=== PATIENT | male | born 1975 | race Caucasian/White ===

== ENCOUNTER 2017-03-31 09:20 | Inpatient (IN) | payer MEDICAID ==
[~2017-03-31] VITALS: Ht 180.3 cm; Wt 76.7 kg
[2017-03-31 09:27] VITALS: BP 160/90
--- NOTE | 2017-03-31 09:33 | NUR ---
Patient ambulated to bed 12.
--- NOTE | 2017-03-31 09:34 | NUR ---
Note undone in EDM - 03/31/17 at 1018 by [email or web address] 41/M C/O ABDOMINAL PAIN RADIATING TO BACK & N/V TODAYS. SKIN IS PINK/WARM/DRY; AAOX4 WITH EVEN AND STEADY GAIT; LUNGS CLEAR BL; PATIENT STATES PAIN OF 9/10 AT THIS TIME; VSS; PATIENT POSITIONED FOR COMFORT; HOB ELEVATED; BEDRAILS UP X2; BED DOWN. ER MADE AWARE OF PT STATUS.
--- NOTE | 2017-03-31 09:34 | NUR ---
41/M BIB FRIEND C/O ABDOMINAL PAIN RADIATING TO BACK & N/V & LOOS STOOL X TODAY. SKIN IS PINK/WARM/DRY; AAOX4 WITH EVEN AND STEADY GAIT; LUNGS CLEAR BL; PATIENT STATES PAIN OF 9/10 AT THIS TIME; VSS; PATIENT POSITIONED FOR COMFORT; HOB ELEVATED; BEDRAILS UP X2; BED DOWN. ER MD MADE AWARE OF PT STATUS.
--- NOTE | 2017-03-31 09:54 | NUR ---
Patient being evaluated by DR JONAS at bedside.
[2017-03-31] MEDS ORDERED: MORPHINE SULFATE 4 MG/ML SYR IVP ONE (09:55)
[2017-03-31] MEDS ORDERED: NACL 0.9% 1,000 ML IV ONE ×2 (09:55→10:55)
[2017-03-31] MEDS ORDERED: ONDANSETRON 4 MG/2 ML VIAL IVP ONE (09:55)
[2017-03-31 10:07] LABS: HEMATOCRIT 47.9 % (36-52); HEMOGLOBIN 15.6 g/dL (12.0-18.0); MEAN CORPUSCULAR HEMOGLOBIN 28 pg (27-31); MEAN CORPUSCULAR HGB CONC 33 g/dL (33-37); MEAN CORPUSCULAR VOLUME 87 fL (80-94); PLATELET COUNT (AUTO) 299 K/uL (140-450); RED CELL DISTRIBUTION WIDTH 12.8 % (11.6-13.7); WHITE BLOOD COUNT (AUTO) 21.2 K/uL (4.8-10.8)
--- NOTE | 2017-03-31 10:12 | NUR ---
PT TAKEN TO CT VIA GUCLARA,ACCOMPANIED BY MARKET DIRECTOR.
[2017-03-31 10:17] LABS: ANION GAP 17.4 (8-16); CREATININE 1.2 mg/dL (0.7-1.3); POTASSIUM 3.4 mmol/L (3.5-5.1)
[2017-03-31 10:18] LABS: LYMPHOCYTES % (MANUAL) 5 % (20-46); MONOCYTES % (MANUAL) 3 % (5-12)
[2017-03-31 10:25] LABS: ALBUMIN 4.4 g/dL (3.4-5.0); TOTAL BILIRUBIN 1.1 mg/dL (0.0-1.0)
[2017-03-31] MEDS ORDERED: PIPERACILLIN/TAZOBACTAM 3.375 GM in DEXTROSE 5% 50 ML IV ONE (10:55)
[2017-03-31] MEDS ORDERED: VANCOMYCIN 1,000 MG in DEXTROSE 5% 250 ML IV ONE (10:55)
[2017-03-31] MEDS ORDERED: PIPERACILLIN/TAZOBACTAM 3.375 GM VIAL IV ONE (11:08)
[2017-03-31] MEDS ORDERED: VANCOMYCIN 1,000 MG VIAL ONE (11:09)
[2017-03-31] MEDS ORDERED: HYDROmorphone 1 MG/ML AMP IVP ONE (11:35)
[2017-03-31] MEDS ORDERED: METOCLOPRAMIDE 10 MG/2 ML INJ VIAL IVP ONE (11:35)
[2017-03-31] MEDS ORDERED: FAMOTIDINE 20 MG/2 ML VIAL IVP ONE (11:35)
[2017-03-31 11:44] LABS: APPEARANCE,URINE HAZY (CLEAR); BILIRUBIN,URINE NEGATIVE (NEGATIVE); BLOOD, URINE 1+ (NEGATIVE); COLOR,URINE YELLOW (YELLOW); LEUKOCYTE ESTERASE ,URINE NEGATIVE (NEGATIVE); NITRITE, URINE NEGATIVE (NEGATIVE); UGLUCOSE NEGATIVE (NEGATIVE)
[2017-03-31 11:52] LABS: RBC,URINE 0-5 (RARE) /HPF (0-5); WBC,URINE 0-5 (RARE) /HPF (0-5)
[2017-03-31] MEDS ORDERED: NACL 0.9% 500 ML IV ONE (12:00)
--- NOTE | 2017-03-31 12:19 | NUR ---
Note abrahan in EDM - 03/31/17 at 1250 by [facility] Patient will be admitted to care of DR CHAVES. Admited to TELE. Will go to room 119A. Belongings list completed. Report to ANGELIA VILLASEÑOR.
--- NOTE | 2017-03-31 12:19 | NUR ---
GAVE REPORT TO ANGELIA FERRARA.
--- NOTE | 2017-03-31 12:20 | NUR ---
RECEIVED REPORT FROM ANGELIA FRAZIER.
--- NOTE | 2017-03-31 12:52 | NUR ---
Patient will be admitted to care of DR CHAVES. Admited to TELE. Will go to room 119A. Belongings list completed. Report to ANGELIA VILLASEÑOR.
[2017-03-31] MEDS ORDERED: DOCUSATE SODIUM 100 MG GELCAP PO PRN (13:00)
[2017-03-31] MEDS ORDERED: KETOROLAC 30 MG/ML VIAL IVP PRN (13:00)
[2017-03-31 13:05] VITALS: BP 150/70
--- NOTE | 2017-03-31 13:05 | NUR ---
PATIENT ARRIVED VIA GURNEY, WAS ABLE TO AMBULATE FROM [place] TO BED. PATIENT IS AAOX4, HAS IV TO THE RIGHT AC 20G ON SALINE LOCK AT THIS TIME. SITE IS CLEAN, DRY, PATENT AND INTACT. LUNG SOUNDS ARE CLEAR, BOWEL SOUNDS ARE ACTIVE. BILATERAL RADIAL PULSE 2+, CAPILLARY REFILL <3 SECONDS. PEDAL PULSES PRESENT. SKIN IS INTACT. PATIENT HAS 5/10 PAIN TO RLQ RADIATING TO THE BACK. WILL MEDICATE ORDERED. ORIENTED PATIENT TO ROOM, BED IN LOWEST POSITION, SIDERAILS UP X2, CALL LIGHT PLACED WITHIN REACH. PATIENT VERBALIZED UNDERSTANDING. WILL CONTINUE TO MONITOR.
[2017-03-31 13:26] LABS: CHOL/HDL RATIO 2.8 (1-4.5); FREE T4 (FREE THYROXINE) 1.29 ng/dL (0.76-1.46); MAGNESIUM 1.4 mg/dL (1.8-2.4); THYROID STIMULATING HORMONE 0.85 uIU/mL (0.34-3.74)
[2017-03-31 13:28] LABS: PROTHROMBIN TIME 10.4 secs (10.8-13.4)
[2017-03-31] MEDS: NACL 0.9% 1,000 ML IV SCH ×2 (13:43→19:40)
[2017-03-31] MEDS ORDERED: POTASSIUM CHLORIDE 10 MEQ TABER PO SCH (14:00)
--- NOTE | 2017-03-31 14:50 | NUR ---
EXPLAINED TO PATIENT THAT IF HE GETS UP TO USE THE RESTROOM THAT HE NEEDS TO STRAIN HIS URINE PER DOCTORS ORDERS. PATIENT VERBALIZED UNDERSTANDING.
--- NOTE | 2017-03-31 15:00 | NUR ---
PATIENT RESTING IN BED, IS MOANING DUE TO THE PAIN. WILL CONTINUE TO MONITOR.
[2017-03-31] MEDS: HYDROcodone/APAP 7.5/325 MG 1 TAB PO PRN (15:32)
[2017-03-31 16:00] VITALS: BP 137/76
[2017-03-31] MEDS ORDERED: MAG SULF 2000 MG/WATER PREMIX 50 ML IV SCH (16:30)
[2017-03-31] MEDS: SODIUM PHOS / POTASSIUM PHOS 1 PKT PDR PO SCH (17:16)
[2017-03-31] MEDS: HYDROmorphone 1 MG/ML AMP IVP PRN ×3 (17:39→23:43)
--- NOTE | 2017-03-31 18:30 | NUR ---
DR VALENZUELA CAME TO SPEAK TO PATIENT. STATED THAT PATIENT CAN HAVE SOMETHING TO EAT, BUT BE PUT ON NPO AFTER MIDNIGHT. WILL ENDORSE TO SORTING GRAPPLE OPERATOR.
[2017-03-31] MEDS: PIPER/TAZO 3.375GM/D5W PREMIX 50 ML IV SCH ×2 (19:07→23:08)
--- NOTE | 2017-03-31 19:20 | NUR ---
ENDORSED PATIENT TO DRUM BUILDER RN FOR CONTINUITY OF CARE. PATIENT IN STABLE CONDITION.
--- NOTE | 2017-03-31 19:30 | NUR ---
RECEIVED FROM AM RN IN BED AWAKE AND ALERT. MALE FRIEND VISITING. DENIES PAIN AT THIS TIME. TELEMETRY MONITORING. NO SOB. NO NOTED RESTLESSNESS. CALL LIGHT WITH IN REACH AND RE-ORIENTED TO ROOM AND CARE GIVERS. . SKIN INTACT. DX. OF SEPSIS SECONDARY TO PYELONEPHRITIS. IVF SITE TO RAC#20 INTACT AND NO INFILTRATION NOTED. AFEBRILE.
[2017-03-31 19:51] VITALS: BP 140/79
--- NOTE | 2017-03-31 21:30 | NUR ---
PT. SLEEPING AT THIS TIME. CALL LIGHT WITH IN REACH AND ON TELEMETRY MONITORING. NO RESTLESSNESS NOTED.
[2017-03-31 23:36] VITALS: BP 145/87
--- NOTE | 2017-03-31 23:40 | NUR ---
PT. AWAKE AT THIS TIME. WENT RESTROOM TO URINATE AND TRIED TO GO BM. BACK IN BED AND REQUESTED FOR PAIN RELIEVER. PAIN IS 8/10. CRYING AT THIS TIME. MEDICATED REQUESTED. CALL LIGHT WITH IN REACH AT ALL TIMES. A/O X 4. ROM X 4. REMINDED NPO MIDNIGHT.
--- NOTE | 2017-04-01 | NUR ---
NO NOTED ADVERSE REACTIONS TO IV ABT ZOSYN INFUSED . ABLE TO VERBALIZE WELL. ORIENTED X 4.
[2017-04-01] MEDS: NACL 0.9% 1,000 ML IV SCH ×4 (02:28→22:20)
[2017-04-01 02:37] VITALS: BP 146/86
--- NOTE | 2017-04-01 02:40 | NUR ---
WOKE UP FROM SLEEP AND CRYING. STATED HE STILL FEEL PAIN IN HIS LOWER BACK . MEDICATED WITH TORADOL IVP. WILL MONITOR AGAIN IF PT. ABLE TO SLEEP BACK.
--- NOTE | 2017-04-01 03:16 | NUR ---
PT. SLEPT BACK. CALL LIGHT WITH IN REACH. NO RESTLESSNESS NOTED AT THIS TIME.
[2017-04-01 04:24] VITALS: BP_SYST 123; BP_SYST 138; BP_DIAS 65; BP_DIAS 74
--- NOTE | 2017-04-01 04:39 | NUR ---
AM HYGIENE RENDERED BY CNAS. NO COMPLAINTS DONE AT THIS TIME.
[2017-04-01] MEDS: PIPER/TAZO 3.375GM/D5W PREMIX 50 ML IV SCH ×4 (05:39→23:34)
[2017-04-01] MEDS: HYDROmorphone 1 MG/ML AMP IVP PRN ×3 (06:11→20:49)
--- NOTE | 2017-04-01 06:42 | NUR ---
PT. WOKE UP AT THIS TIME AND MOANING , CRYING AND RESTLESS. REQUESTED FOR PAIN RELIEVER. MEDICATED ORDERED. PT. ABLE TO VERBALIZE NEEDS WELL. NO SOB. IVF SITE INTACT AND NO INFILTRATION. ON TELEMETRY MONITORING. PT. DX. PYELONEPHRITIS/SEPSIS. PT.'S URINE WITH TINY FLECKS OF CRYSTALS NOTED FROM STRAINED URINE.
--- NOTE | 2017-04-01 07:15 | NUR ---
RECEIVED REPORT FROM PEAR PICKER RN. PATIENT IS AAOX4, DENIES PAIN AT THIS TIME. NO SIGNS AND SYMPTOMS OF DISTRESS NOTED AT THIS TIME. HAS IV NS INFUSING TO RIGHT AC 20G AT 150 ML/HR, SITE IS CLEAN, DRY AND PATENT. BED IS IN LOWEST POSITION, SIDE RAILS UP X2, CALL LIGHT PLACED WITHIN REACH. WILL CONTINUE TO MONITOR.
[2017-04-01 07:22] LABS: HEMATOCRIT 41.4 % (36-52); MEAN CORPUSCULAR HEMOGLOBIN 30 pg (27-31); MEAN CORPUSCULAR HGB CONC 34 g/dL (33-37); MEAN CORPUSCULAR VOLUME 87 fL (80-94); PLATELET COUNT (AUTO) 244 K/uL (140-450); RED BLOOD CELL COUNT(AUTO) 4.74 MIL/uL (4.20-6.10); RED CELL DISTRIBUTION WIDTH 12.9 % (11.6-13.7); WHITE BLOOD COUNT (AUTO) 18.8 K/uL (4.8-10.8)
[2017-04-01 07:38] LABS: ANION GAP 11.4 (8-16); CARBON DIOXIDE 28.2 mmol/L (21-32); CREATININE 1.2 mg/dL (0.7-1.3); POTASSIUM 3.6 mmol/L (3.5-5.1)
[2017-04-01 07:40] LABS: PHOSPHORUS 3.4 mg/dL (2.5-4.9)
[2017-04-01 08:00] VITALS: BP 111/56
[2017-04-01] MEDS: SODIUM PHOS / POTASSIUM PHOS 1 PKT PDR PO SCH ×3 (08:00→17:50)
[2017-04-01 08:01] LABS: LYMPHOCYTES % (MANUAL) 10 % (20-46)
[2017-04-01 08:02] LABS: MONOCYTES % (MANUAL) 5 % (5-12)
[2017-04-01] MEDS: TAMSULOSIN 0.4 MG CAP PO SCH ×2 (08:30→16:33)
[2017-04-01 08:54] LABS: T4 (THYROXINE) 8.2 ug/dL (4.5-12.0)
[2017-04-01] MEDS: LACTOBACILLUS RHAMNOSUS GG 1 EACH CAP PO SCH (09:00)
--- NOTE | 2017-04-01 09:18 | NUR ---
PATIENT HAS BEEN SCREENED AND CATEGORIZED HIGH NUTRITION RISK. PATIENT WILL BE SEEN WITHIN 1-2 DAYS OF ADMISSION. 04/01/17-04/02/[address]
[2017-04-01] MEDS: ONDANSETRON 4 MG/2 ML VIAL IM/IVP PRN (11:35)
[2017-04-01] MEDS ORDERED: ACET-9529 PO (12:13)
[2017-04-01] MEDS ORDERED: DOCU-299 PO (12:13)
[2017-04-01] MEDS ORDERED: LEVO750T2 PO (12:13)
[2017-04-01] MEDS ORDERED: LACT10CA PO (12:13)
[2017-04-01] MEDS ORDERED: SIME80CT70 PO (12:15)
[2017-04-01] MEDS ORDERED: TAMS0.4C96 PO (12:21)
[2017-04-01] MEDS ORDERED: SIMETHICONE 80 MG TAB.CHEW PO SCH (12:30)
[2017-04-01] MEDS ORDERED: hydrALAZINE 20 MG/ML VIAL IVP PRN (12:45)
--- NOTE | 2017-04-01 12:45 | NUR ---
04/01/17 RD INITIAL ASSESSMENT COMPLETED PLEASE REFER TO NUTRITION ASSESSMENT UNDER CARE ACTIVITY FOR ESTIMATED NUTRITIONAL NEEDS. 1. CONTINUE REGULAR DIET 2. RD TO FOLLOW UP WITHIN 2-3 DAYS; HIGH RISK [address]
[2017-04-01 16:00] VITALS: BP 137/78
--- NOTE | 2017-04-01 16:00 | NUR ---
PATIENT AMBULATING IN THE [place], SAYS HE HAS PAIN IN HIS LOWER BACK.
[2017-04-01] MEDS ORDERED: TAMSULOSIN 0.4 MG CAP PO ONE (16:35)
[2017-04-01] MEDS: METOCLOPRAMIDE 10 MG TAB PO PRN (16:36)
--- NOTE | 2017-04-01 19:23 | NUR ---
ENDORSED PATIENT TO CLUTCH REBUILDER RN FOR CONTINUITY CARE. PATIENT IN STABLE CONDITION.
--- NOTE | 2017-04-01 19:25 | NUR ---
RECEIVED PT IN STABLE CONDITION FROM AM NURSE. AWAKE,ALERT AND ORIENTED X4/ ARMENIAN SPEAKING. MED SURG PT. AMBULATORY . DENIES ANY PAIN AT THIS TIME. WITH IVF INFUSING WELL ON THE RT AC #20/ CLEAR AND PATENT. PLAN OF CARE DISCUSSED AND VERBALIZED UNDERSTANDING. HAS VISITORS AT BEDSIDE. CALL LIGHT AND URINALS WITHIN EASY REACH. WILL CONTINUE TO MONITOR.
[2017-04-01 20:42] VITALS: BP 136/75
[2017-04-01] MEDS: ACETAMINOPHEN 325 MG TAB PO PRN (20:50)
--- NOTE | 2017-04-01 20:50 | NUR ---
PT TEMP 100.8. REFUSED ANY COOLING MEASURES LIKE ICE PACK. TYLENOL 650 MG PO GIVEN ORDERED. ENCOURAGED TO TAKE MORE FLUIDS. WILL CONTINUE TO MONITOR.
--- NOTE | 2017-04-01 22:10 | NUR ---
PT C/O TOO MUCH GAS . DR. SHANNON, RESIDENT MADE AWARE . WILL MAKE ORDER.
[2017-04-01] MEDS: ALUMINUM HYD/MAG/SIMETHICONE 30 ML UDC PO PRN (22:34)
--- NOTE | 2017-04-01 23:30 | NUR ---
PT IS AFEBRILE AND MORE COMFORTABLE NO MORE C/O ABDOMINAL DISCOMFORT . WILL CONTINUE TO MONITOR.
[2017-04-01 23:39] VITALS: BP 133/64
--- NOTE | 2017-04-02 | NUR ---
PT INSTRUCTED ABOUT NPO STATUS AFTER MN FOR ANY POSSIBLE PROCEDURE IN AM . VERBALIZED UNDERSTANDING.
[2017-04-02] MEDS: NACL 0.9% 1,000 ML IV SCH ×5 (01:27→21:07)
--- NOTE | 2017-04-02 02:00 | NUR ---
MADE ROUNDS. PT ASLEEP. NO DISTRESS NOTED. WILL CONTINUE TO MONITOR.
[2017-04-02] MEDS: ACETAMINOPHEN 325 MG TAB PO PRN ×3 (03:44→21:19)
--- NOTE | 2017-04-02 04:30 | NUR ---
PT AWAKE, AMBULATED TO THE HALLWAY. HE SAID HE HAD DIARRHEA X1. WILL OBSERVE FURTHER DIARRHEA.
[2017-04-02] MEDS: PIPER/TAZO 3.375GM/D5W PREMIX 50 ML IV SCH ×3 (05:53→17:00)
--- NOTE | 2017-04-02 06:00 | NUR ---
DR. SHANNON CAME AND MADE AWARE ABOUT X1 EPISODE OF DIARRHEA. WILL CONTINUE TO MONITOR.
[2017-04-02 06:22] LABS: HEMOGLOBIN 13.1 g/dL (12.0-18.0); MEAN CORPUSCULAR HEMOGLOBIN 30 pg (27-31); MEAN CORPUSCULAR HGB CONC 33 g/dL (33-37); MEAN CORPUSCULAR VOLUME 89 fL (80-94); PLATELET COUNT (AUTO) 217 K/uL (140-450); RED CELL DISTRIBUTION WIDTH 13.3 % (11.6-13.7); WHITE BLOOD COUNT (AUTO) 17.8 K/uL (4.8-10.8)
--- NOTE | 2017-04-02 06:26 | NUR ---
PT VOIDING WELL DURING THE NIGHT. NO STONES NOTED .
[2017-04-02 06:40] LABS: ANION GAP 7.9 (8-16); CARBON DIOXIDE 30.7 mmol/L (21-32); CREATININE 0.9 mg/dL (0.7-1.3); POTASSIUM 3.6 mmol/L (3.5-5.1)
--- NOTE | 2017-04-02 07:23 | NUR ---
ENDORSED PT IN STABLE CONDITION TO AM NURSE.
--- NOTE | 2017-04-02 07:24 | NUR ---
RECEIVED REPORT FROM THE MONOGRAM OPERATOR NURSE AT BEDSIDE FOR CONTINUITY OF CARE. PT IS AWAKE, BIT DROWSY. PT IS [place] SPEAKING W/ VERY LITTLE MONGOLIAN. INTRODUCED MYSELF AND UPDATED THE BOARD. PT IS C/O OF VERY LITTLE RLQ ABD PAIN. 07/12. TOLERABLE. V/S WITHIN NORMAL RANGE. NO FEVER. PT HAD A SMALL BM EARLY THIS MORNING. IV ON R AC 20G NS AT 150ML. WE ARE STRAINING URINE FOR STONES. NONE NOTED. STRAINED 270ML THIS MORNING. BREAKFAST IS HERE. PT REFUSED TO EAT. WILL CONTINUE TO MONITOR PT.
[2017-04-02 07:29] LABS: EOSINOPHILS % (MANUAL) 1 % (0-4); LYMPHOCYTES % (MANUAL) 13 % (20-46); MONOCYTES % (MANUAL) 4 % (5-12)
[2017-04-02 08:00] VITALS: BP 130/82
[2017-04-02] MEDS: TAMSULOSIN 0.4 MG CAP PO SCH (08:35)
[2017-04-02] MEDS: LACTOBACILLUS RHAMNOSUS GG 1 EACH CAP PO SCH (08:35)
[2017-04-02] MEDS: SODIUM PHOS / POTASSIUM PHOS 1 PKT PDR PO SCH ×3 (08:35→17:00)
[2017-04-02] MEDS: ALUMINUM HYD/MAG/SIMETHICONE 30 ML UDC PO PRN ×2 (08:36→21:14)
--- NOTE | 2017-04-02 08:40 | NUR ---
ADMINISTERED MORNING MEDS. PT TOLERATED WELL. PT REQUESTED TYLENOL FOR BARNES 08/09. ADMINISTERED. PT TOLERATED WELL. WILL CONTINUE TO MONITOR PT.
--- NOTE | 2017-04-02 10:55 | NUR ---
PT RESTING COMFORTABLY. NO SIGNS OF DISTRESS. WILL CONTINUE TO MONITOR PT.
--- NOTE | 2017-04-02 12:08 | NUR ---
DR. VALENZUELA, UROLOGIST HERE AND SAW PT AND UPSET THAT HE PUT PT ON NPO AFTER MIDNIGHT AND DR. LEE HAD CHANGED IT TO REG DIET AND THAT HE WAS NOT NOTIFIED OF THE FEVER HE HAD LAST NIGHT. PT TO BE NPO AFTER MIDNIGHT TONIGHT. STENT PROCEDURE TOMORROW AM.
[2017-04-02] MEDS: HYDROcodone/APAP 7.5/325 MG 1 TAB PO PRN (12:54)
--- NOTE | 2017-04-02 15:01 | NUR ---
PT RESTING COMFORTABLY. NO SIGNS OF DISTRESS. WILL CONTINUE TO MONITOR PT.
[2017-04-02 16:00] VITALS: BP 135/83
--- NOTE | 2017-04-02 17:09 | NUR ---
ADMINISTERED AFTERNOON MED, ABX, AND A NEW NS. PT TOLERATED WELL. PAIN MANAGEABLE. REFUSES PAIN MED. WILL CONTINUE TO MONITOR PT.
--- NOTE | 2017-04-02 19:13 | NUR ---
ENDORSED PT TO THE COMPUTER SYSTEMS SOFTWARE ENGINEER NURSE AT BEDSIDE FOR CONTINUITY OF CARE. PT IS VISITING WITH A FRIEND. IN STABLE CONDITION.
--- NOTE | 2017-04-02 19:14 | NUR ---
[id number] BEDSIDE REPORT FROM DAY SHIFT NURSE, YONATAN GALAN, PT STABLE, NO DISTRESS NOTED, AAO X4, AMBULATES, SKIN INTACT, IV TO THE R AC 20G RUNNING NS @ 150ML/HR, INFUSING WELL, CALL LIGHT WITHIN REACH, FRIEND BY BEDSIDE, WILL CONTINUE TO MONITOR. Addendum: 04/02/17 at 1956 by Chelsea Arthur RN ALL SAFETY PRECAUTION MET, INITIAL ASSESSMENT DONE.
[2017-04-02] MEDS ORDERED: INFLUENZA VIRUS VACCINE QUAD 0.5 ML SYR IMVAC SCH (20:05)
--- NOTE | 2017-04-02 21:25 | NUR ---
PT C/O OF GAS AND HEADACHE, MEDICATION GIVEN, PT TOLERATED WELL, NO DISTRESS NOTED, CALL LIGHT WITHIN REACH, WILL CONTINUE TO MONITOR.
--- NOTE | 2017-04-02 23:10 | NUR ---
CHECKED ON PT, PT SLEEPING, NO DISTRESS NOTED CALL LIGHT WITHIN REACH WILL CONTINUE TO MONITOR.
[2017-04-03] VITALS: BP 124/66
[2017-04-03] MEDS: PIPER/TAZO 3.375GM/D5W PREMIX 50 ML IV SCH ×4 (00:08→17:20)
[2017-04-03] MEDS: NACL 0.9% 1,000 ML IV SCH ×3 (00:08→20:49)
--- NOTE | 2017-04-03 00:08 | NUR ---
DUE MEDICATION GIVEN, PT SLEEPING, EASY TO AROUSE, NO DISTRESS NOTED, CALL LIGHT WITHIN REACH, WILL CONTINUE TO MONITOR.
--- NOTE | 2017-04-03 02:18 | NUR ---
CHECKED ON PT, PT SLEEPING, EASY TO AROUSE, NO DISTRESS NOTED, REPORTING HAVING NO PAIN, WILL CONTINUE TO MONITOR.
--- NOTE | 2017-04-03 04:26 | NUR ---
CHECKED ON PT, PT SLEEPING, EASY TO AROUSE, NO DISTRESS NOTED, CALL LIGHT WITHIN REACH, WILL CONTINUE TO MONITOR.
--- NOTE | 2017-04-03 05:40 | NUR ---
DUE MEDICATION GIVEN, PT SLEEPING, EASY TO AROUSE, NO DISTRESS NOTED, CALL LIGHT WITHIN REACH, WILL CONTINUE TO MONITOR.
--- NOTE | 2017-04-03 07:14 | NUR ---
GAVE BEDSIDE REPORT TO DAY SHIFT NURSE DAYANARA BYRD STABLE, NO DISTRESS NOTED, PICKED UP BY BED FOR SURGERY.
--- NOTE | 2017-04-03 07:15 | NUR ---
RECEIVED PT IN BED, AWAKE, ALERT ORIENTEDX4. NO SOB NOTED. PT AMBULATORY. OR STAFF CAME TO SUPERANNUATION FUNDS MANAGER PT FOR CYSTOSCOPY, RIGHT STENT PLACEMENT, POSSIBLE RIGHT URETROSCOPY. OR CHECKLIST DONE BY TELETYPE TECHNICIAN. PROVIDED WITH TICKET TO RIDE. CONSENT SIGNED. PT TRANSFERRED TO OR ON STABLE CONDITION.
[2017-04-03] MEDS ORDERED: SEVOFLURANE 250 ML BTL INH ONE (07:20)
[2017-04-03] MEDS ORDERED: PROPOFOL 200 MG/20 ML VIAL IV ONE (07:20)
[2017-04-03] MEDS ORDERED: fentaNYL 0.05 MG/ML VIAL ONE (07:35)
[2017-04-03] MEDS ORDERED: MIDAZOLAM 2 MG/2 ML VIAL ONE (07:35)
[2017-04-03] MEDS ORDERED: ONDANSETRON 4 MG/2 ML VIAL IVP PRN (07:45)
[2017-04-03] MEDS ORDERED: HYDROmorphone 1 MG/ML AMP IVP PRN (07:45)
[2017-04-03] MEDS: SODIUM PHOS / POTASSIUM PHOS 1 PKT PDR PO SCH ×3 (08:00→16:00)
[2017-04-03] MEDS: TAMSULOSIN 0.4 MG CAP PO SCH (08:30)
[2017-04-03] MEDS: LACTOBACILLUS RHAMNOSUS GG 1 EACH CAP PO SCH (09:00)
[2017-04-03] MEDS ORDERED: HYDROmorphone PFS 2 MG/ML SYR ONE (10:09)
[2017-04-03] MEDS ORDERED: ONDANSETRON 4 MG/2 ML VIAL ONE (10:09)
[2017-04-03 10:20] LABS: BASOPHILS # (AUTO) 0.3 K/uL (0.00-0.22); BASOPHILS % (AUTO) 2.2 % (0.0-2.0); EOSINOPHILS # (AUTO) 0.3 K/uL (0-0.4); EOSINOPHILS % (AUTO) 1.9 % (0.0-4.0); HEMATOCRIT 41.5 % (36-52); HEMOGLOBIN 13.8 g/dL (12.0-18.0); LYMPHOCYTES # (AUTO) 2.9 K/uL (2.0-11.5); LYMPHOCYTES % (AUTO) 21.5 % (20.5-51.1); MEAN CORPUSCULAR HEMOGLOBIN 29 pg (27-31); MEAN CORPUSCULAR HGB CONC 33 g/dL (33-37); MEAN CORPUSCULAR VOLUME 88 fL (80-94); MONOCYTES # (AUTO) 1.3 K/uL (0.8-1.0); MONOCYTES % (AUTO) 9.9 % (1.7-9.3); NEUTROPHILS # (AUTO) 8.8 K/uL (1.8-7.7); NEUTROPHILS % (AUTO) 64.5 % (42.2-75.2); PLATELET COUNT (AUTO) 243 K/uL (140-450); RED BLOOD CELL COUNT(AUTO) 4.74 MIL/uL (4.20-6.10); RED CELL DISTRIBUTION WIDTH 12.7 % (11.6-13.7); WHITE BLOOD COUNT (AUTO) 13.6 K/uL (4.8-10.8)
[2017-04-03 10:30] VITALS: BP 142/86
--- NOTE | 2017-04-03 10:30 | NUR ---
PT CAME BACK FROM OR. ASSISTED BY OR NURSE. PT HAD CYSTOSCOPY AND RIGHT URETROSCOPY. PT AWAKE. ALERT ORIENTEDX4. PT COMPLAINS OF FEELING COLD. OFFERED WARM BLANKETS. HOOKED TO IVF. NO SOB NOTED. DENIES ANY PAIN OR DISCOMFORT AT THIS TIME. PT URINATED ON URINAL. BLOOD TINGE URINE NOTED, LIGHT MORSE IN COLOR. PT KEPT COMFORTABLE. VITAL SIGNS TAKEN AND RECORDED.
[2017-04-03 10:35] LABS: ANION GAP 12.1 (8-16); CARBON DIOXIDE 28.7 mmol/L (21-32); POTASSIUM 3.8 mmol/L (3.5-5.1)
[2017-04-03 10:39] LABS: MAGNESIUM 1.5 mg/dL (1.8-2.4); PHOSPHORUS 3.5 mg/dL (2.5-4.9)
[2017-04-03 10:40] LABS: PROTHROMBIN TIME 10.4 secs (10.8-13.4)
[2017-04-03] MEDS: HYDROmorphone 1 MG/ML AMP IVP PRN ×3 (11:05→20:42)
--- NOTE | 2017-04-03 11:15 | NUR ---
DR. JANG MADE AWARE PER OR NURSE REPORT THAT ACCORDING TO DR. VALENZUELA TO KEEP PT NPO UNTIL SEEN BY HIM.
[2017-04-03] MEDS ORDERED: HYDROmorphone 1 MG/ML AMP IVP SCH (11:51)
--- NOTE | 2017-04-03 11:51 | NUR ---
DISCARDED DILAUDD 0.5MG IVP TAKEN FROM PYXIS PER PACU ORDER. WITNESSED BY ANOTHER NURSE. DR. JANG MADE AWARE THAT PT STILL COMPLAINS OF PAIN AFETR DOSE OF DILAUDID OERED 0.5MG FOR Q3 HRS WAS GIVEN. AND DR. JANG MADE AWARE OF MAGNESIUM LEVEL 1.5, AND MADE AWARE THAT PT REQUESTED TO SEE PT. MD TO SEE PT.
[2017-04-03] MEDS ORDERED: MAG SULF 2000 MG/WATER PREMIX 50 ML IV SCH (12:30)
[2017-04-03] MEDS: ALUMINUM HYD/MAG/SIMETHICONE 30 ML UDC PO PRN (12:47)
--- NOTE | 2017-04-03 12:53 | NUR ---
DR. VALENZUELA CAME TO SEE PT. PER MD HE WANTS TO GIVE TORADOL 30MG IVP Q6 HRS X4 DOSES AND CHANGE THE DIET TO REGULAR DIET, AND STRAIN ALL URINE. DR. JANG MADE AWARE WITH ORDERS MADE AND CARRIED OUT.
[2017-04-03] MEDS ORDERED: KETOROLAC 30 MG/ML VIAL IVP PRN (12:55)
[2017-04-03] MEDS: ONDANSETRON 4 MG/2 ML VIAL IM/IVP PRN (13:59)
[2017-04-03 15:49] VITALS: BP 151/84
[2017-04-03] MEDS: KETOROLAC 30 MG/ML VIAL IVP SCH ×2 (17:21→23:36)
--- NOTE | 2017-04-03 17:28 | NUR ---
DRAINED PT'S URINAL. URINE CLEAR, LESS MORES COLORED, MORE OF YELLOW IN COLOR NOW. SMALL BLOOD CLOTS NOTED. URINE CONTINUED TO BE STRAINED FOR STONES.
--- NOTE | 2017-04-03 18:39 | NUR ---
PT KEPT, CLEAN, DRY AND COMFORTABLE. NEEDS ATTENDED, WILL ENDORSE TO NEXT SHIFT ON STABLE CONDITION, FOR CONTINUITY OF CARE. FAMILY AT BEDSIDE AT THIS TIME.
--- NOTE | 2017-04-03 18:40 | NUR ---
RECEIVED PT FROM DAY SHIFT, PT AAOX4 ON . NO S/S OF DISTRESS NOTED. IV TO R AC 20 G PATENT AND INTACT, INFUSING WELL. RESPIRATIONS EVEN AND UNLABORED. BOWEL SOUNDS PRESENT. SKIN INTACT. PT IS WARM AND DRY. INITIAL ASSESSMENT COMPLETED. PLAN OF CARE DISCUSSED WITH PT AT THE BEDSIDE, PT VERBALIZED UNDERSTANDING. ALL SAFETY PRECAUTIONS MET, CALL LIGHT WITHIN REACH, WILL CONTINUE TO MONITOR
--- NOTE | 2017-04-03 21:00 | NUR ---
2120 ML OF URINE STRAINED. NO STONES NOTED. URINE HAS LIGHT PINK TINGE WITH SCANT BLOOD CLOTS.
[2017-04-03] MEDS: METOCLOPRAMIDE 10 MG TAB PO PRN (23:35)
[2017-04-04] VITALS: BP 122/71
--- NOTE | 2017-04-04 00:30 | NUR ---
950 ML OF URINE STRAINED. NO STONES NOTED. URINE IS LIGHT YELLOW AND CLEAR NO ODOR NOTED. WILL CONTINUE TO MONITOR
[2017-04-04] MEDS: PIPER/TAZO 3.375GM/D5W PREMIX 50 ML IV SCH ×2 (00:31→05:31)
[2017-04-04] MEDS: NACL 0.9% 1,000 ML IV SCH ×2 (03:23→10:20)
--- NOTE | 2017-04-04 03:30 | NUR ---
PT RESTING COMFORTABLY IN BED. NO S/S OF DISTRESS NOTED. CALL LIGHT WITHIN REACH, WILL CONTINUE TO MONITOR
[2017-04-04] MEDS: KETOROLAC 30 MG/ML VIAL IVP SCH ×2 (05:31→13:10)
[2017-04-04] MEDS ORDERED: MAG SULF 2000 MG/WATER PREMIX 50 ML IV ONE (05:50)
[2017-04-04 05:56] LABS: BASOPHILS # (AUTO) 0.4 K/uL (0.00-0.22); BASOPHILS % (AUTO) 3.1 % (0.0-2.0); EOSINOPHILS # (AUTO) 0.2 K/uL (0-0.4); EOSINOPHILS % (AUTO) 1.9 % (0.0-4.0); HEMATOCRIT 40.1 % (36-52); HEMOGLOBIN 13.5 g/dL (12.0-18.0); LYMPHOCYTES % (AUTO) 17.6 % (20.5-51.1); MEAN CORPUSCULAR HEMOGLOBIN 30 pg (27-31); MEAN CORPUSCULAR HGB CONC 34 g/dL (33-37); MEAN CORPUSCULAR VOLUME 88 fL (80-94); MONOCYTES # (AUTO) 1.6 K/uL (0.8-1.0); MONOCYTES % (AUTO) 14.3 % (1.7-9.3); NEUTROPHILS # (AUTO) 7.1 K/uL (1.8-7.7); NEUTROPHILS % (AUTO) 63.1 % (42.2-75.2); PLATELET COUNT (AUTO) 244 K/uL (140-450); RED BLOOD CELL COUNT(AUTO) 4.59 MIL/uL (4.20-6.10); RED CELL DISTRIBUTION WIDTH 12.5 % (11.6-13.7); WHITE BLOOD COUNT (AUTO) 11.3 K/uL (4.8-10.8)
[2017-04-04] MEDS ORDERED: BENZOCAINE 20% 57 GM CAN MC PRN ×2 (06:10→07:55)
[2017-04-04] MEDS: ALUMINUM HYD/MAG/SIMETHICONE 30 ML UDC PO PRN (06:24)
[2017-04-04 06:30] LABS: CARBON DIOXIDE 28.8 mmol/L (21-32); CREATININE 1.5 mg/dL (0.7-1.3); POTASSIUM 3.8 mmol/L (3.5-5.1)
[2017-04-04 06:31] LABS: PHOSPHORUS 3.5 mg/dL (2.5-4.9)
--- NOTE | 2017-04-04 07:20 | NUR ---
GAVE REPORT TO HECTOR GALAN AT THE BEDSIDE FOR CONTINUITY OF CARE, PT IN STABLE CONDITION. NO S/S OF DISTRESS NOTED.
--- NOTE | 2017-04-04 07:25 | NUR ---
RECEIVED REPORT FROM DISPLAY DEPARTMENT MANAGER NURSE, PT IS RESTING IN BED IN SEMI FOWLERS POSITION, PT IS A/OX4, AMBULATORY, IV IS ON THE RT AC, PATENT, INTACT, FLUSHING WELL, NO S/S OF RESPIRATORY DISTRESS OR DISCOMFORT NOTED, DISCUSSED PLAN OF CARE WITH PT, PT VERBALIZED UNDERSTANDING, SAFETY/FALL PRECAUTIONS ARE IN PLACE, CALL LIGHT WITHIN REACH, WILL CONTINUE TO MONITOR.
[2017-04-04 08:00] VITALS: BP 129/90
[2017-04-04] MEDS: TAMSULOSIN 0.4 MG CAP PO SCH (08:37)
[2017-04-04] MEDS: LACTOBACILLUS RHAMNOSUS GG 1 EACH CAP PO SCH (08:37)
[2017-04-04] MEDS: SODIUM PHOS / POTASSIUM PHOS 1 PKT PDR PO SCH (08:37)
--- NOTE | 2017-04-04 08:37 | NUR ---
DUE MEDICATIONS GIVEN, PT TOLERATED WELL, CALL LIGHT WITHIN REACH.
[2017-04-04] MEDS ORDERED: LEVO750T2 PO (10:08)
[2017-04-04] MEDS: HYDROmorphone 1 MG/ML AMP IVP PRN (10:46)
--- NOTE | 2017-04-04 11:30 | NUR ---
PT RESTING IN BED WATCHING TV, CALL LIGHT WITHIN REACH.
--- NOTE | 2017-04-04 12:46 | NUR ---
DISCHARGE INSTRUCTIONS GIVEN, ID WRIST BAND REMOVED, IV REMOVED, CATHETER TIP INTACT.
--- NOTE | 2017-04-04 14:30 | NUR ---
IV REMOVED CATHETER TIP INTACT, PT STABLE UPON DISCHARGE ACCOMPANIED BY FAMILY MEMBER.
== END 2017-04-04 14:30 | disposition home or self-care (01) | DRG 465 ==
LOC: MED 09:20 → MTU 12:05
PROVIDERS: ADMIT Family Medicine; ATTEND Family Medicine
PROC: BT1D1ZZ Fluoroscopy of Right Kidney, Ureter and Bladder using Low Osmolar Contrast (ICD-10-PCS; principal; 2017-04-03 07:30)
PROC: 3E0234Z Introduction of Serum, Toxoid and Vaccine into Muscle, Percutaneous Approach (ICD-10-PCS; 2017-04-04)
DX: N13.2 Hydronephrosis with renal and ureteral calculous obstruction (principal); N17.0 Acute kidney failure with tubular necrosis; R65.11 Systemic inflammatory response syndrome (SIRS) of non-infectious origin with acute organ dysfunction; E83.42 Hypomagnesemia; E83.39 Other disorders of phosphorus metabolism; I10 Essential (primary) hypertension; E86.0 Dehydration; K59.00 Constipation, unspecified; E87.6 Hypokalemia; F12.10 Cannabis abuse, uncomplicated; R82.4 Acetonuria; Z23 Encounter for immunization
CPT/HCPCS: 36415; 71010; 74450; 77003; 80048; 80053; 81001; 82150; 83036; 83605; 83690; 83735; 84100; 84436; 84439; 84443; 84479; 85025; 85610; 85730; 87040; 87081; 87086; 90658; 93005; 96365; 96366; 96375; 99291; C1758; C1769; C1874; J1170; J1885; J2250; J2270; J2405; J2543; J2704; J2765; J3010; J3370; J3475; J3490; J7030; J7060; J8597